=== PATIENT | female | born 1965 | race African-American/Black ===

== ENCOUNTER 2017-12-28 16:59 | Inpatient (IN) | payer MEDICAID, OTHER ==
[~2017-12-28] VITALS: Ht 162.6 cm; Wt 44.9 kg
[2017-12-28] MEDS ORDERED: HYDR-3112 PO (17:32)
[2017-12-28 17:54] LABS: BASOPHILS % (AUTO) 0.5 % (0.0-2.0); HEMATOCRIT 42.6 % (36-46); HEMOGLOBIN 14.3 g/dL (12.0-16.0); LYMPHOCYTES # (AUTO) 1.6 K/uL (1.0-4.8); LYMPHOCYTES % (AUTO) 25.8 % (22.0-44.0); MEAN CORPUSCULAR HEMOGLOBIN 31.6 pg (26.0-34.0); MEAN CORPUSCULAR HGB CONC 33.5 G/dL (31.0-37.0); MEAN CORPUSCULAR VOLUME 94 fL (80-100); MONOCYTES # (AUTO) 0.4 K/uL (0.1-1.0); MONOCYTES % (AUTO) 5.6 % (2.0-9.0); NEUTROPHILS # (AUTO) 4.2 K/uL (1.8-7.7); NEUTROPHILS % (AUTO) 67.1 % (40.0-70.0); PLATELET COUNT (AUTO) 141 K/uL (150-450); RED BLOOD CELL COUNT(AUTO) 4.52 MIL/uL (4.00-5.20); RED CELL DISTRIBUTION WIDTH 11.8 % (11.5-14.5)
[2017-12-28 18:01] LABS: ANION GAP 8 mmol/L (8-16); CALCIUM, TOTAL 9.4 mg/dL (8.8-10.5); CARBON DIOXIDE 30 mmol/L (22-29); CHLORIDE 103 mmol/L (98-107); CREATININE 0.94 mg/dL (0.60-1.30); GLOMERULAR FILTR. RATE CALC > 60 mL/min (>60); GLUCOSE,RANDOM 93 mg/dL (70-110); SODIUM SERUM 141 mmol/L (136-145); UREA NITROGEN, BLOOD 19 mg/dL (7-18)
[2017-12-28 18:03] LABS: ALBUMIN 3.7 g/dL (3.4-5.0)
[2017-12-28 18:10] LABS: AMPHET/METH SCREEN,URINE NEGATIVE (NEGATIVE); BARBITURATE SCREEN, URINE NEGATIVE (NEGATIVE); BENZODIAZEPINES SCREEN,URINE NEGATIVE (NEGATIVE); CANNABINOID SCREEN,URINE NEGATIVE (NEGATIVE); COCAINE SCREEN,URINE NEGATIVE (NEGATIVE); METHADONE SCREEN, URINE NEGATIVE (NEGATIVE); OPIATE SCREEN,URINE NEGATIVE (NEGATIVE)
[2017-12-28 18:12] LABS: PHENCYCLIDINE SCREEN,URINE NEGATIVE (NEGATIVE)
[2017-12-28 18:22] LABS: ALANINE AMINOTRANSFERASE 55 U/L (12-78); ALKALINE PHOSPHATASE 109 U/L (46-116); ASPARTATE AMINOTRANSFERASE 37 U/L (15-37); BILIRUBIN,TOTAL 0.4 mg/dL (0.1-1.0); TOTAL PROTEIN, SERUM 7.1 g/dL (6.4-8.2)
[2017-12-28] MEDS ORDERED: ZOLPIDEM TARTRATE 10 MG TABLET PO PRN (21:15)
[2017-12-28] MEDS ORDERED: HALOPERIDOL 5 MG TABLET PO PRN (21:15)
[2017-12-28] MEDS ORDERED: LORazepam 2 MG TABLET PO PRN (21:15)
[2017-12-28] MEDS ORDERED: APIX5TAB PO (22:39)
[2017-12-28] MEDS ORDERED: MULT1TAB70 PO (22:39)
[2017-12-28] MEDS ORDERED: CARV3 PO (22:39)
[2017-12-28] MEDS ORDERED: SPIR25 PO (22:39)
[2017-12-28] MEDS ORDERED: SENN-34 PO (22:39)
[2017-12-28] MEDS ORDERED: VITAD1000 PO (22:39)
[2017-12-28] MEDS ORDERED: ATOR40TA28 PO (22:39)
[2017-12-28] MEDS ORDERED: ASPI81TA39 PO (22:39)
[2017-12-29 00:20] VITALS: BP 108/69
[2017-12-29] MEDS ORDERED: PNEUMOCOCCAL VACCINE POLYVALENT 0.5 ML VIAL [PPSV23] IM ONE (05:30)
[2017-12-29] MEDS ORDERED: ACETAMINOPHEN 325 MG TABLET PO PRN (06:30)
[2017-12-29] MEDS ORDERED: LOPERAMIDE HCL 2 MG CAPSULE PO PRN (06:30)
[2017-12-29] MEDS ORDERED: BACITRACIN 28.4 GM OINTMENT TP PRN (06:30)
[2017-12-29] MEDS ORDERED: BENZOCAINE/MENTHOL LOZENGE MM PRN (06:30)
[2017-12-29] MEDS ORDERED: PETROLATUM,WHITE 71 GM JELLY TP PRN (06:30)
[2017-12-29] MEDS ORDERED: MAGNESIUM HYDROXIDE SUSPENSION 30 ML UDCUP PO PRN (06:30)
[2017-12-29] MEDS ORDERED: ALBUTEROL SULFATE HFA 90 MCG/PUFF 8 GM INHALER IH PRN (06:30)
[2017-12-29] MEDS ORDERED: ONDANSETRON HCL 4 MG TABLET PO PRN (06:30)
[2017-12-29] MEDS ORDERED: CloNIDine HCL 0.1 MG TABLET PO PRN (06:30)
[2017-12-29] MEDS ORDERED: MAG HYDROX/AL HYDROX/SIMETH ES 30 ML SUSPENSION UDCUP PO PRN (06:30)
[2017-12-29] MEDS ORDERED: IBUPROFEN 600 MG TABLET PO PRN (06:30)
[2017-12-29] MEDS: ASPIRIN 81 MG CHEWABLE TABLET PO SCH (08:34)
[2017-12-29] MEDS: CARVEDILOL 3.125 MG TABLET PO SCH ×2 (08:34→17:00)
[2017-12-29] MEDS: DOCUSATE SODIUM 100 MG CAPSULE PO SCH (08:35)
[2017-12-29] MEDS: CHOLECALCIFEROL (VIT D3) 1,000 UNITS TABLET PO SCH (08:35)
[2017-12-29] MEDS: MULTIVITAMINS, THERAPEUTIC TABLET PO SCH (08:35)
[2017-12-29] MEDS: OMEPRAZOLE 20 MG CAPSULE PO SCH (08:35)
[2017-12-29 08:36] VITALS: BP 125/67
[2017-12-29] MEDS: HydrOXYzine HCL 25 MG TABLET PO SCH ×4 (09:00→21:00)
[2017-12-29] MEDS: APIXABAN 5 MG TABLET PO SCH ×2 (12:40→17:00)
[2017-12-29] MEDS: SPIRONOLACTONE 25 MG TABLET PO SCH (12:40)
[2017-12-29] MEDS: SENNA 187 MG TABLET PO SCH ×2 (12:40→16:03)
[2017-12-29 16:02] VITALS: BP 108/67
[2017-12-29] MEDS: DIVALPROEX SODIUM 500 MG DR TABLET PO SCH (20:45)
[2017-12-29] MEDS: ATORVASTATIN CALCIUM 40 MG TABLET PO SCH (21:00)
[2017-12-30 00:33] VITALS: BP 102/62
[2017-12-30 08:00] VITALS: BP 102/63
[2017-12-30] MEDS: SENNA 187 MG TABLET PO SCH ×2 (08:22→16:44)
[2017-12-30] MEDS: SPIRONOLACTONE 25 MG TABLET PO SCH (08:22)
[2017-12-30] MEDS: MULTIVITAMINS, THERAPEUTIC TABLET PO SCH (08:22)
[2017-12-30] MEDS: DOCUSATE SODIUM 100 MG CAPSULE PO SCH (08:22)
[2017-12-30] MEDS: CITALOPRAM HYDROBROMIDE 20 MG TABLET PO SCH (08:22)
[2017-12-30] MEDS: APIXABAN 5 MG TABLET PO SCH ×2 (08:22→17:00)
[2017-12-30] MEDS: ASPIRIN 81 MG CHEWABLE TABLET PO SCH (08:22)
[2017-12-30] MEDS: DIVALPROEX SODIUM 500 MG DR TABLET PO SCH ×2 (08:22→17:00)
[2017-12-30] MEDS: CHOLECALCIFEROL (VIT D3) 1,000 UNITS TABLET PO SCH (08:23)
[2017-12-30] MEDS: CARVEDILOL 3.125 MG TABLET PO SCH ×2 (08:23→17:00)
[2017-12-30] MEDS: OMEPRAZOLE 20 MG CAPSULE PO SCH (08:23)
[2017-12-30] MEDS: HydrOXYzine HCL 25 MG TABLET PO SCH ×4 (08:26→20:05)
[2017-12-30 16:00] VITALS: BP 101/69
[2017-12-30] MEDS: ATORVASTATIN CALCIUM 40 MG TABLET PO SCH (20:05)
[2017-12-31 00:30] VITALS: BP 110/68
[2017-12-31 08:20] VITALS: BP 121/78
[2017-12-31] MEDS: SPIRONOLACTONE 25 MG TABLET PO SCH (08:20)
[2017-12-31] MEDS: CHOLECALCIFEROL (VIT D3) 1,000 UNITS TABLET PO SCH (08:20)
[2017-12-31] MEDS: OMEPRAZOLE 20 MG CAPSULE PO SCH (08:20)
[2017-12-31] MEDS: ASPIRIN 81 MG CHEWABLE TABLET PO SCH (08:20)
[2017-12-31] MEDS: MULTIVITAMINS, THERAPEUTIC TABLET PO SCH (08:20)
[2017-12-31] MEDS: DIVALPROEX SODIUM 500 MG DR TABLET PO SCH ×2 (08:20→17:30)
[2017-12-31] MEDS: HydrOXYzine HCL 25 MG TABLET PO SCH ×4 (08:20→20:20)
[2017-12-31] MEDS: CARVEDILOL 3.125 MG TABLET PO SCH ×2 (08:20→17:30)
[2017-12-31] MEDS: DOCUSATE SODIUM 100 MG CAPSULE PO SCH (08:20)
[2017-12-31] MEDS: SENNA 187 MG TABLET PO SCH ×2 (08:20→16:55)
[2017-12-31] MEDS: CITALOPRAM HYDROBROMIDE 20 MG TABLET PO SCH (08:20)
[2017-12-31] MEDS: APIXABAN 5 MG TABLET PO SCH ×2 (08:21→17:30)
[2017-12-31 16:08] VITALS: BP 101/63
[2017-12-31] MEDS: ATORVASTATIN CALCIUM 40 MG TABLET PO SCH (20:20)
[2018-01-01 05:15] VITALS: BP 110/68
[2018-01-01 08:14] VITALS: BP 101/64
[2018-01-01] MEDS: DIVALPROEX SODIUM 500 MG DR TABLET PO SCH ×2 (08:39→17:22)
[2018-01-01] MEDS: CITALOPRAM HYDROBROMIDE 20 MG TABLET PO SCH (08:39)
[2018-01-01] MEDS: DOCUSATE SODIUM 100 MG CAPSULE PO SCH (08:39)
[2018-01-01] MEDS: CHOLECALCIFEROL (VIT D3) 1,000 UNITS TABLET PO SCH (08:39)
[2018-01-01] MEDS: MULTIVITAMINS, THERAPEUTIC TABLET PO SCH (08:39)
[2018-01-01] MEDS: ASPIRIN 81 MG CHEWABLE TABLET PO SCH (08:39)
[2018-01-01] MEDS: OMEPRAZOLE 20 MG CAPSULE PO SCH (08:39)
[2018-01-01] MEDS: SPIRONOLACTONE 25 MG TABLET PO SCH (08:40)
[2018-01-01] MEDS: APIXABAN 5 MG TABLET PO SCH ×2 (08:40→17:22)
[2018-01-01] MEDS: SENNA 187 MG TABLET PO SCH ×2 (08:40→16:42)
[2018-01-01] MEDS: HydrOXYzine HCL 25 MG TABLET PO SCH ×4 (08:40→20:16)
[2018-01-01] MEDS: CARVEDILOL 3.125 MG TABLET PO SCH ×2 (09:10→17:22)
[2018-01-01 16:27] VITALS: BP 102/66
[2018-01-01] MEDS: ATORVASTATIN CALCIUM 40 MG TABLET PO SCH (20:16)
[2018-01-02 01:34] VITALS: BP 102/62
[2018-01-02 08:27] VITALS: BP 103/65
[2018-01-02 08:57] VITALS: BP 117/74
[2018-01-02] MEDS: ASPIRIN 81 MG CHEWABLE TABLET PO SCH (08:58)
[2018-01-02] MEDS: DOCUSATE SODIUM 100 MG CAPSULE PO SCH (08:59)
[2018-01-02] MEDS: CARVEDILOL 3.125 MG TABLET PO SCH ×2 (08:59→17:34)
[2018-01-02] MEDS: OMEPRAZOLE 20 MG CAPSULE PO SCH (08:59)
[2018-01-02] MEDS: DIVALPROEX SODIUM 500 MG DR TABLET PO SCH ×2 (08:59→17:34)
[2018-01-02] MEDS: SPIRONOLACTONE 25 MG TABLET PO SCH (08:59)
[2018-01-02] MEDS: CHOLECALCIFEROL (VIT D3) 1,000 UNITS TABLET PO SCH (08:59)
[2018-01-02] MEDS: SENNA 187 MG TABLET PO SCH ×2 (08:59→16:43)
[2018-01-02] MEDS: MULTIVITAMINS, THERAPEUTIC TABLET PO SCH (08:59)
[2018-01-02] MEDS: CITALOPRAM HYDROBROMIDE 20 MG TABLET PO SCH (08:59)
[2018-01-02] MEDS: HydrOXYzine HCL 25 MG TABLET PO SCH ×4 (08:59→20:32)
[2018-01-02] MEDS: APIXABAN 5 MG TABLET PO SCH ×2 (09:00→17:34)
[2018-01-02 16:11] VITALS: BP 117/62
[2018-01-02] MEDS: ATORVASTATIN CALCIUM 40 MG TABLET PO SCH (20:32)
[2018-01-03 05:28] VITALS: BP 120/81
[2018-01-03 08:02] VITALS: BP 103/60
[2018-01-03] MEDS: OMEPRAZOLE 20 MG CAPSULE PO SCH (08:59)
[2018-01-03] MEDS: CARVEDILOL 3.125 MG TABLET PO SCH ×2 (08:59→17:38)
[2018-01-03] MEDS: DIVALPROEX SODIUM 500 MG DR TABLET PO SCH ×2 (09:00→17:39)
[2018-01-03] MEDS: MULTIVITAMINS, THERAPEUTIC TABLET PO SCH (09:00)
[2018-01-03] MEDS: ASPIRIN 81 MG CHEWABLE TABLET PO SCH (09:00)
[2018-01-03] MEDS: SENNA 187 MG TABLET PO SCH ×2 (09:00→16:31)
[2018-01-03] MEDS: CHOLECALCIFEROL (VIT D3) 1,000 UNITS TABLET PO SCH (09:00)
[2018-01-03] MEDS: HydrOXYzine HCL 25 MG TABLET PO SCH ×4 (09:00→20:19)
[2018-01-03] MEDS: SPIRONOLACTONE 25 MG TABLET PO SCH (09:00)
[2018-01-03] MEDS: APIXABAN 5 MG TABLET PO SCH ×2 (09:00→17:38)
[2018-01-03] MEDS: CITALOPRAM HYDROBROMIDE 20 MG TABLET PO SCH (09:00)
[2018-01-03] MEDS: DOCUSATE SODIUM 100 MG CAPSULE PO SCH (09:00)
[2018-01-03 16:51] VITALS: BP 115/68
[2018-01-03] MEDS: RisperiDONE 0.5 MG TABLET PO SCH (17:39)
[2018-01-03] MEDS: ATORVASTATIN CALCIUM 40 MG TABLET PO SCH (20:19)
[2018-01-04] MEDS ORDERED: RISP.5 PO (02:44)
[2018-01-04] MEDS ORDERED: CITA-106 PO (02:44)
[2018-01-04] MEDS ORDERED: DIVA-78 PO (02:44)
[2018-01-04 05:19] VITALS: BP 120/82
[2018-01-04] MEDS ORDERED: ATOR40TA28 PO (07:53)
[2018-01-04] MEDS ORDERED: ASPI81TA87 PO (07:54)
[2018-01-04] MEDS ORDERED: VITAD1000 PO (07:54)
[2018-01-04] MEDS ORDERED: SENN8.6T90 PO (07:55)
[2018-01-04] MEDS ORDERED: APIX5TAB PO (07:55)
[2018-01-04] MEDS ORDERED: CARV3.1262 PO (07:56)
[2018-01-04] MEDS ORDERED: SPIR25 PO (07:56)
[2018-01-04 08:21] VITALS: BP 110/72
[2018-01-04] MEDS: DIVALPROEX SODIUM 500 MG DR TABLET PO SCH (08:34)
[2018-01-04] MEDS: MULTIVITAMINS, THERAPEUTIC TABLET PO SCH (08:34)
[2018-01-04] MEDS: ASPIRIN 81 MG CHEWABLE TABLET PO SCH (08:34)
[2018-01-04] MEDS: CITALOPRAM HYDROBROMIDE 20 MG TABLET PO SCH (08:35)
[2018-01-04] MEDS: CHOLECALCIFEROL (VIT D3) 1,000 UNITS TABLET PO SCH (08:35)
[2018-01-04] MEDS: OMEPRAZOLE 20 MG CAPSULE PO SCH (08:35)
[2018-01-04] MEDS: DOCUSATE SODIUM 100 MG CAPSULE PO SCH (08:35)
[2018-01-04] MEDS: CARVEDILOL 3.125 MG TABLET PO SCH (08:35)
[2018-01-04] MEDS: RisperiDONE 0.5 MG TABLET PO SCH (08:35)
[2018-01-04] MEDS: SPIRONOLACTONE 25 MG TABLET PO SCH (08:36)
[2018-01-04] MEDS: SENNA 187 MG TABLET PO SCH (08:36)
[2018-01-04] MEDS: HydrOXYzine HCL 25 MG TABLET PO SCH ×2 (08:36→12:37)
[2018-01-04] MEDS: APIXABAN 5 MG TABLET PO SCH (08:36)
== END 2018-01-04 14:01 | disposition home or self-care (01) | DRG 754 ==
LOC: EMS 17:00 → B2S 21:30
PROVIDERS: ADMIT Psychiatry & Neurology Psychiatry; ATTEND Psychiatry & Neurology Psychiatry
DX: F32.9 Major depressive disorder, single episode, unspecified (principal); F22 Delusional disorders; R45.851 Suicidal ideations; I10 Essential (primary) hypertension; E55.9 Vitamin D deficiency, unspecified; E78.00 Pure hypercholesterolemia, unspecified; F41.9 Anxiety disorder, unspecified; G47.00 Insomnia, unspecified; J44.9 Chronic obstructive pulmonary disease, unspecified; Z90.710 Acquired absence of both cervix and uterus; Z95.0 Presence of cardiac pacemaker; Z79.899 Other long term (current) drug therapy; Z88.2 Allergy status to sulfonamides; Z79.82 Long term (current) use of aspirin; Z28.21 Immunization not carried out because of patient refusal
CPT/HCPCS: 99285; G0480

== ENCOUNTER 2021-02-18 11:02 | Inpatient (IN) | payer MEDICAID, OTHER ==
[~2021-02-18] VITALS: Ht 162.6 cm; Wt 49.1 kg
[~2021-02-18 11:02] MED LIST: APIX5TAB PO; ASPI81TA87 PO; ATOR40TA28 PO; CARV3.1262 PO; CHOL100018 PO; CITA-144 PO; DIVA-112 PO; RISP0.5T39 PO; SENN8.6T90 PO; SPIR-37 PO
[2021-02-18 12:00] LABS: BASOPHILS % (AUTO) 0.4 % (0.0-2.0); EOSINOPHILS % (AUTO) 0.2 % (1.0-6.0); HEMATOCRIT 43.8 % (36-46); MEAN CORPUSCULAR HEMOGLOBIN 30.5 pg (26.0-34.0); MEAN CORPUSCULAR VOLUME 95 fL (80-100); MONOCYTES % (AUTO) 5.1 % (2.0-9.0); NEUTROPHILS % (AUTO) 80.3 % (40.0-70.0); PLATELET COUNT (AUTO) 142 K/uL (150-450); RED BLOOD CELL COUNT(AUTO) 4.59 MIL/uL (4.00-5.20); RED CELL DISTRIBUTION WIDTH 12.7 % (11.5-14.5)
[2021-02-18 12:01] LABS: LYMPHOCYTES # (AUTO) 0.9 K/uL (1.0-4.8); MONOCYTES # (AUTO) 0.3 K/uL (0.1-1.0)
[2021-02-18 12:09] LABS: ANION GAP 2 mmol/L (8-16); CALCIUM, TOTAL 9.2 mg/dL (8.8-10.5); CARBON DIOXIDE 32 mmol/L (22-29); CHLORIDE 107 mmol/L (98-107); CREATININE 1.12 mg/dL (0.60-1.30); GLOMERULAR FILTR. RATE CALC > 60 mL/min (>60); GLUCOSE,RANDOM 106 mg/dL (70-110); POTASSIUM 3.8 mmol/L (3.5-5.1); SODIUM SERUM 141 mmol/L (136-145); UREA NITROGEN, BLOOD 9 mg/dL (7-18)
[2021-02-18 12:16] LABS: ALANINE AMINOTRANSFERASE 33 U/L (12-78); ALBUMIN 3.9 g/dL (3.4-5.0); ALKALINE PHOSPHATASE 116 U/L (46-116); ASPARTATE AMINOTRANSFERASE 30 U/L (15-37); BILIRUBIN,TOTAL 0.5 mg/dL (0.1-1.0); TOTAL PROTEIN, SERUM 7.9 g/dL (6.4-8.2)
[2021-02-18] MEDS ORDERED: LORazepam 2 MG TABLET PO PRN (14:00)
[2021-02-18] MEDS ORDERED: HALOPERIDOL 5 MG TABLET PO PRN (14:00)
[2021-02-18] MEDS ORDERED: ZOLPIDEM TARTRATE 10 MG TABLET PO PRN (14:00)
[2021-02-18 14:23] LABS: COVID AG,FIA SOURCE NASOPHARYNGEAL
[2021-02-18] MEDS ORDERED: HALOPERIDOL LACTATE 5 MG/ML VIAL ONE (16:22)
[2021-02-18] MEDS ORDERED: LORazepam 2 MG/ML VIAL IM ONE (16:30)
[2021-02-18] MEDS ORDERED: DiphenhydrAMINE HCL 50 MG/ML VIAL IM ONE (16:30)
[2021-02-18] MEDS ORDERED: HALOPERIDOL LACTATE 5 MG/ML VIAL IM ONE (16:30)
[2021-02-18 17:11] VITALS: BP 105/67
[2021-02-18] MEDS ORDERED: PNEUMOCOCCAL VACCINE POLYVALENT 0.5 ML VIAL [PPSV23] IM. ONE (17:15)
[2021-02-18] MEDS: ATORVASTATIN CALCIUM 40 MG TABLET PO SCH (21:00)
[2021-02-19 04:07] VITALS: BP 102/71
[2021-02-19] MEDS: SPIRONOLACTONE 25 MG TABLET PO SCH (08:19)
[2021-02-19] MEDS: CARVEDILOL 3.125 MG TABLET PO SCH ×2 (08:19→16:55)
[2021-02-19] MEDS: APIXABAN 5 MG TABLET PO SCH ×2 (08:19→16:56)
[2021-02-19] MEDS: ASPIRIN 81 MG CHEWABLE TABLET PO SCH (08:19)
[2021-02-19] MEDS: CHOLECALCIFEROL (VIT D3) 1,000 UNITS [25 MCG] TABLET PO SCH (08:20)
[2021-02-19] MEDS: CITALOPRAM HYDROBROMIDE 20 MG TABLET PO SCH (11:00)
[2021-02-19] MEDS: RisperiDONE 0.5 MG TABLET PO SCH ×2 (11:00→20:19)
[2021-02-19] MEDS: DIVALPROEX SODIUM 500 MG DR TABLET PO SCH ×2 (11:00→20:19)
[2021-02-19] MEDS ORDERED: MAG HYDROX/AL HYDROX/SIMETH ES 30 ML SUSPENSION UDCUP PO PRN (11:30)
[2021-02-19] MEDS ORDERED: GuaiFENesin/D-METHORPHAN [SUGAR-FREE] 200-20MG/10 ML SYRUP UDCUP PO PRN (11:30)
[2021-02-19] MEDS ORDERED: ONDANSETRON HCL 4 MG TABLET PO PRN (11:30)
[2021-02-19] MEDS ORDERED: LOPERAMIDE HCL 2 MG CAPSULE PO PRN (11:30)
[2021-02-19] MEDS ORDERED: MAGNESIUM HYDROXIDE SUSPENSION 30 ML UDCUP PO PRN (11:30)
[2021-02-19] MEDS ORDERED: DOCUSATE SODIUM 100 MG CAPSULE PO PRN (11:30)
[2021-02-19] MEDS ORDERED: PETROLATUM,WHITE 28 GM JELLY TP PRN (11:30)
[2021-02-19] MEDS ORDERED: NICOTINE 14 MG/24 HOUR PATCH TD PRN (11:30)
[2021-02-19] MEDS ORDERED: CloNIDine HCL 0.1 MG TABLET PO PRN (11:30)
[2021-02-19] MEDS ORDERED: ALBUTEROL SULFATE HFA 90 MCG/PUFF 8 GM INHALER IH PRN (11:30)
[2021-02-19] MEDS ORDERED: IBUPROFEN 400 MG TABLET PO PRN (11:30)
[2021-02-19] MEDS ORDERED: ACETAMINOPHEN 325 MG TABLET PO PRN (11:30)
[2021-02-19 16:12] VITALS: BP 98/67
[2021-02-19 16:29] VITALS: BP 108/72
[2021-02-19] MEDS: ATORVASTATIN CALCIUM 40 MG TABLET PO SCH (20:19)
[2021-02-20 00:11] VITALS: BP 102/66
[2021-02-20 01:20] LABS: CHOLESTEROL 146 mg/dL (131-200); HDL CHOLESTEROL 49 mg/dL (40-60); LDL CHOL (CALC.) 86 mg/dL (0-130); TRIGLYCERIDES 57 mg/dL (15-150)
[2021-02-20 08:46] VITALS: BP 110/68
[2021-02-20] MEDS: ASPIRIN 81 MG CHEWABLE TABLET PO SCH (09:39)
[2021-02-20] MEDS: SPIRONOLACTONE 25 MG TABLET PO SCH (09:39)
[2021-02-20] MEDS: CARVEDILOL 3.125 MG TABLET PO SCH ×2 (09:40→16:57)
[2021-02-20] MEDS: CITALOPRAM HYDROBROMIDE 20 MG TABLET PO SCH (09:40)
[2021-02-20] MEDS: DIVALPROEX SODIUM 500 MG DR TABLET PO SCH ×2 (09:41→20:32)
[2021-02-20] MEDS: APIXABAN 5 MG TABLET PO SCH ×2 (09:41→16:57)
[2021-02-20] MEDS: CHOLECALCIFEROL (VIT D3) 1,000 UNITS [25 MCG] TABLET PO SCH (09:42)
[2021-02-20] MEDS: RisperiDONE 0.5 MG TABLET PO SCH ×2 (09:47→20:33)
[2021-02-20 16:23] VITALS: BP 99/68
[2021-02-20] MEDS: ATORVASTATIN CALCIUM 40 MG TABLET PO SCH (20:33)
[2021-02-21 02:35] VITALS: BP 103/62
[2021-02-21 08:34] VITALS: BP 100/69
[2021-02-21] MEDS: ASPIRIN 81 MG CHEWABLE TABLET PO SCH (09:03)
[2021-02-21] MEDS: RisperiDONE 0.5 MG TABLET PO SCH ×2 (09:03→20:06)
[2021-02-21] MEDS: CITALOPRAM HYDROBROMIDE 20 MG TABLET PO SCH (09:03)
[2021-02-21] MEDS: CARVEDILOL 3.125 MG TABLET PO SCH ×2 (09:03→16:36)
[2021-02-21] MEDS: DIVALPROEX SODIUM 500 MG DR TABLET PO SCH ×2 (09:03→20:07)
[2021-02-21] MEDS: APIXABAN 5 MG TABLET PO SCH ×2 (09:03→16:36)
[2021-02-21] MEDS: SPIRONOLACTONE 25 MG TABLET PO SCH (09:03)
[2021-02-21] MEDS: CHOLECALCIFEROL (VIT D3) 1,000 UNITS [25 MCG] TABLET PO SCH (09:04)
[2021-02-21 16:20] VITALS: BP 100/61
[2021-02-21] MEDS: ATORVASTATIN CALCIUM 40 MG TABLET PO SCH (20:07)
[2021-02-22 01:19] VITALS: BP 108/74
[2021-02-22 08:48] VITALS: BP 100/59
[2021-02-22] MEDS: CARVEDILOL 3.125 MG TABLET PO SCH ×2 (09:00→17:00)
[2021-02-22] MEDS: SPIRONOLACTONE 25 MG TABLET PO SCH (09:00)
[2021-02-22] MEDS: CHOLECALCIFEROL (VIT D3) 1,000 UNITS [25 MCG] TABLET PO SCH (09:14)
[2021-02-22] MEDS: CITALOPRAM HYDROBROMIDE 20 MG TABLET PO SCH (09:14)
[2021-02-22] MEDS: RisperiDONE 0.5 MG TABLET PO SCH ×2 (09:14→20:01)
[2021-02-22] MEDS: APIXABAN 5 MG TABLET PO SCH ×2 (09:14→16:16)
[2021-02-22] MEDS: ASPIRIN 81 MG CHEWABLE TABLET PO SCH (09:14)
[2021-02-22] MEDS: DIVALPROEX SODIUM 500 MG DR TABLET PO SCH ×2 (09:14→20:01)
[2021-02-22 16:05] VITALS: BP 107/53
[2021-02-22] MEDS: ATORVASTATIN CALCIUM 40 MG TABLET PO SCH (20:01)
[2021-02-23 00:20] VITALS: BP 101/64
[2021-02-23 08:40] VITALS: BP 100/59
[2021-02-23] MEDS: CARVEDILOL 3.125 MG TABLET PO SCH ×2 (09:00→17:00)
[2021-02-23] MEDS: CHOLECALCIFEROL (VIT D3) 1,000 UNITS [25 MCG] TABLET PO SCH (09:28)
[2021-02-23] MEDS: RisperiDONE 0.5 MG TABLET PO SCH ×2 (09:28→20:14)
[2021-02-23] MEDS: APIXABAN 5 MG TABLET PO SCH ×2 (09:29→17:12)
[2021-02-23] MEDS: SPIRONOLACTONE 25 MG TABLET PO SCH (09:29)
[2021-02-23] MEDS: DIVALPROEX SODIUM 500 MG DR TABLET PO SCH ×2 (09:29→20:14)
[2021-02-23] MEDS: CITALOPRAM HYDROBROMIDE 20 MG TABLET PO SCH (09:29)
[2021-02-23 16:10] VITALS: BP 116/63
[2021-02-23] MEDS: ATORVASTATIN CALCIUM 40 MG TABLET PO SCH (20:14)
[2021-02-24 00:15] VITALS: BP 110/71
[2021-02-24 08:34] VITALS: BP 100/59
[2021-02-24] MEDS: CARVEDILOL 3.125 MG TABLET PO SCH ×2 (09:00→16:15)
[2021-02-24] MEDS: SPIRONOLACTONE 25 MG TABLET PO SCH (09:00)
[2021-02-24] MEDS: CITALOPRAM HYDROBROMIDE 20 MG TABLET PO SCH (09:09)
[2021-02-24] MEDS: RisperiDONE 0.5 MG TABLET PO SCH ×2 (09:09→20:17)
[2021-02-24] MEDS: DIVALPROEX SODIUM 500 MG DR TABLET PO SCH ×2 (09:09→20:17)
[2021-02-24] MEDS: CHOLECALCIFEROL (VIT D3) 1,000 UNITS [25 MCG] TABLET PO SCH (09:09)
[2021-02-24] MEDS: APIXABAN 5 MG TABLET PO SCH ×2 (09:19→16:14)
[2021-02-24 10:30] VITALS: BP 108/70
[2021-02-24 16:19] VITALS: BP 103/59
[2021-02-24] MEDS: ATORVASTATIN CALCIUM 40 MG TABLET PO SCH (20:17)
[2021-02-25 00:45] VITALS: BP 111/63
[2021-02-25 08:15] VITALS: BP 90/61
[2021-02-25] MEDS: SPIRONOLACTONE 25 MG TABLET PO SCH (08:26)
[2021-02-25] MEDS: RisperiDONE 0.5 MG TABLET PO SCH ×2 (08:26→20:23)
[2021-02-25] MEDS: CHOLECALCIFEROL (VIT D3) 1,000 UNITS [25 MCG] TABLET PO SCH (08:26)
[2021-02-25] MEDS: THIAMINE 100 MG TABLET PO SCH (08:26)
[2021-02-25] MEDS: FOLIC ACID 1 MG TABLET PO SCH (08:26)
[2021-02-25] MEDS: MULTIVITAMINS WITH MINERALS, THERAPEUTIC TABLET PO SCH (08:26)
[2021-02-25] MEDS: DIVALPROEX SODIUM 500 MG DR TABLET PO SCH ×2 (08:26→20:23)
[2021-02-25] MEDS: APIXABAN 5 MG TABLET PO SCH ×2 (08:26→17:04)
[2021-02-25] MEDS: CARVEDILOL 3.125 MG TABLET PO SCH ×2 (08:26→17:04)
[2021-02-25] MEDS: CITALOPRAM HYDROBROMIDE 20 MG TABLET PO SCH (08:27)
[2021-02-25 08:28] LABS: MAGNESIUM 1.9 mg/dL (1.80-2.40); PHOSPHORUS 4.1 mg/dL (2.5-4.9)
[2021-02-25 16:11] VITALS: BP 96/68
[2021-02-25] MEDS: ATORVASTATIN CALCIUM 40 MG TABLET PO SCH (20:23)
[2021-02-26 00:37] VITALS: BP 100/72
[2021-02-26 08:26] VITALS: BP 101/63
[2021-02-26] MEDS: CHOLECALCIFEROL (VIT D3) 1,000 UNITS [25 MCG] TABLET PO SCH (08:49)
[2021-02-26] MEDS: MULTIVITAMINS WITH MINERALS, THERAPEUTIC TABLET PO SCH (08:49)
[2021-02-26] MEDS: FOLIC ACID 1 MG TABLET PO SCH (08:49)
[2021-02-26] MEDS: APIXABAN 5 MG TABLET PO SCH ×2 (08:49→16:50)
[2021-02-26] MEDS: THIAMINE 100 MG TABLET PO SCH (08:49)
[2021-02-26] MEDS: CITALOPRAM HYDROBROMIDE 20 MG TABLET PO SCH (08:49)
[2021-02-26] MEDS: RisperiDONE 0.5 MG TABLET PO SCH ×2 (08:49→20:37)
[2021-02-26] MEDS: DIVALPROEX SODIUM 500 MG DR TABLET PO SCH ×2 (08:49→20:36)
[2021-02-26] MEDS: SPIRONOLACTONE 25 MG TABLET PO SCH ×2 (09:00→13:36)
[2021-02-26] MEDS: CARVEDILOL 3.125 MG TABLET PO SCH ×2 (09:00→16:50)
[2021-02-26 16:22] VITALS: BP 104/60
[2021-02-26] MEDS: ATORVASTATIN CALCIUM 40 MG TABLET PO SCH (20:36)
[2021-02-27 04:20] VITALS: BP 106/66
[2021-02-27 08:08] VITALS: BP 106/73
[2021-02-27] MEDS: CARVEDILOL 3.125 MG TABLET PO SCH ×2 (09:00→17:00)
[2021-02-27] MEDS: DIVALPROEX SODIUM 500 MG DR TABLET PO SCH ×2 (09:26→20:21)
[2021-02-27] MEDS: APIXABAN 5 MG TABLET PO SCH ×2 (09:26→17:03)
[2021-02-27] MEDS: THIAMINE 100 MG TABLET PO SCH (09:26)
[2021-02-27] MEDS: CHOLECALCIFEROL (VIT D3) 1,000 UNITS [25 MCG] TABLET PO SCH (09:26)
[2021-02-27] MEDS: RisperiDONE 0.5 MG TABLET PO SCH ×2 (09:26→20:20)
[2021-02-27] MEDS: MULTIVITAMINS WITH MINERALS, THERAPEUTIC TABLET PO SCH (09:26)
[2021-02-27] MEDS: CITALOPRAM HYDROBROMIDE 20 MG TABLET PO SCH (09:26)
[2021-02-27] MEDS: SPIRONOLACTONE 25 MG TABLET PO SCH (09:26)
[2021-02-27] MEDS: FOLIC ACID 1 MG TABLET PO SCH (09:26)
[2021-02-27 16:11] VITALS: BP 98/64
[2021-02-27] MEDS: ATORVASTATIN CALCIUM 40 MG TABLET PO SCH (20:20)
[2021-02-28 05:33] VITALS: BP 108/64
[2021-02-28] MEDS: CARVEDILOL 3.125 MG TABLET PO SCH ×2 (09:00→16:49)
[2021-02-28 09:08] VITALS: BP 101/62
[2021-02-28] MEDS: RisperiDONE 0.5 MG TABLET PO SCH ×2 (09:21→20:06)
[2021-02-28] MEDS: THIAMINE 100 MG TABLET PO SCH (09:21)
[2021-02-28] MEDS: CHOLECALCIFEROL (VIT D3) 1,000 UNITS [25 MCG] TABLET PO SCH (09:21)
[2021-02-28] MEDS: MULTIVITAMINS WITH MINERALS, THERAPEUTIC TABLET PO SCH (09:21)
[2021-02-28] MEDS: CITALOPRAM HYDROBROMIDE 20 MG TABLET PO SCH (09:22)
[2021-02-28] MEDS: APIXABAN 5 MG TABLET PO SCH ×2 (09:22→16:49)
[2021-02-28] MEDS: DIVALPROEX SODIUM 500 MG DR TABLET PO SCH ×2 (09:22→20:06)
[2021-02-28] MEDS: FOLIC ACID 1 MG TABLET PO SCH (09:22)
[2021-02-28] MEDS: SPIRONOLACTONE 25 MG TABLET PO SCH (09:29)
[2021-02-28 16:14] VITALS: BP 94/56
[2021-02-28] MEDS: ATORVASTATIN CALCIUM 40 MG TABLET PO SCH (20:06)
[2021-03-01 05:17] VITALS: BP 108/62
[2021-03-01] MEDS: THIAMINE 100 MG TABLET PO SCH (08:05)
[2021-03-01] MEDS: CITALOPRAM HYDROBROMIDE 20 MG TABLET PO SCH (08:12)
[2021-03-01] MEDS: RisperiDONE 0.5 MG TABLET PO SCH ×2 (08:12→20:29)
[2021-03-01] MEDS: DIVALPROEX SODIUM 500 MG DR TABLET PO SCH ×2 (08:12→20:29)
[2021-03-01] MEDS: SPIRONOLACTONE 25 MG TABLET PO SCH (08:13)
[2021-03-01] MEDS: FOLIC ACID 1 MG TABLET PO SCH (08:13)
[2021-03-01] MEDS: CARVEDILOL 3.125 MG TABLET PO SCH ×2 (08:13→16:21)
[2021-03-01] MEDS: MULTIVITAMINS WITH MINERALS, THERAPEUTIC TABLET PO SCH (08:13)
[2021-03-01] MEDS: APIXABAN 5 MG TABLET PO SCH ×2 (08:13→16:21)
[2021-03-01] MEDS: CHOLECALCIFEROL (VIT D3) 1,000 UNITS [25 MCG] TABLET PO SCH (08:13)
[2021-03-01 08:30] VITALS: BP 98/61
[2021-03-01 10:00] VITALS: BP 104/68
[2021-03-01 17:58] VITALS: BP 96/57
[2021-03-01] MEDS: ATORVASTATIN CALCIUM 40 MG TABLET PO SCH (20:29)
[2021-03-02 00:56] VITALS: BP 103/62
[2021-03-02] MEDS: FOLIC ACID 1 MG TABLET PO SCH (08:13)
[2021-03-02] MEDS: DIVALPROEX SODIUM 500 MG DR TABLET PO SCH ×2 (08:13→20:46)
[2021-03-02] MEDS: THIAMINE 100 MG TABLET PO SCH (08:13)
[2021-03-02] MEDS: MULTIVITAMINS WITH MINERALS, THERAPEUTIC TABLET PO SCH (08:13)
[2021-03-02] MEDS: CARVEDILOL 3.125 MG TABLET PO SCH ×2 (08:14→17:12)
[2021-03-02] MEDS: APIXABAN 5 MG TABLET PO SCH ×2 (08:14→17:12)
[2021-03-02] MEDS: SPIRONOLACTONE 25 MG TABLET PO SCH (08:14)
[2021-03-02] MEDS: CHOLECALCIFEROL (VIT D3) 1,000 UNITS [25 MCG] TABLET PO SCH (08:14)
[2021-03-02] MEDS: RisperiDONE 0.5 MG TABLET PO SCH ×2 (08:14→20:46)
[2021-03-02] MEDS: CITALOPRAM HYDROBROMIDE 20 MG TABLET PO SCH (08:14)
[2021-03-02 08:39] VITALS: BP 100/60
[2021-03-02 10:34] LABS: GLUCOMETER DEV NAME(LOC) POC.BV
[2021-03-02 16:21] VITALS: BP 127/61
[2021-03-02] MEDS: ATORVASTATIN CALCIUM 40 MG TABLET PO SCH (20:46)
[2021-03-03 00:36] VITALS: BP 117/71
[2021-03-03 08:45] VITALS: BP 112/64
[2021-03-03] MEDS: SPIRONOLACTONE 25 MG TABLET PO SCH (08:50)
[2021-03-03] MEDS: THIAMINE 100 MG TABLET PO SCH (08:50)
[2021-03-03] MEDS: RisperiDONE 0.5 MG TABLET PO SCH ×2 (08:50→20:28)
[2021-03-03] MEDS: APIXABAN 5 MG TABLET PO SCH ×2 (08:50→16:36)
[2021-03-03] MEDS: FOLIC ACID 1 MG TABLET PO SCH (08:51)
[2021-03-03] MEDS: CHOLECALCIFEROL (VIT D3) 1,000 UNITS [25 MCG] TABLET PO SCH (08:51)
[2021-03-03] MEDS: DIVALPROEX SODIUM 500 MG DR TABLET PO SCH ×2 (08:51→20:27)
[2021-03-03] MEDS: MULTIVITAMINS WITH MINERALS, THERAPEUTIC TABLET PO SCH (08:51)
[2021-03-03] MEDS: CITALOPRAM HYDROBROMIDE 20 MG TABLET PO SCH (08:51)
[2021-03-03] MEDS: CARVEDILOL 3.125 MG TABLET PO SCH ×2 (08:53→16:48)
[2021-03-03 16:14] VITALS: BP 104/60
[2021-03-03] MEDS: ATORVASTATIN CALCIUM 40 MG TABLET PO SCH (20:28)
[2021-03-04 00:53] VITALS: BP 101/71
[2021-03-04 08:19] VITALS: BP 90/60
[2021-03-04] MEDS: MULTIVITAMINS WITH MINERALS, THERAPEUTIC TABLET PO SCH (08:38)
[2021-03-04] MEDS: CITALOPRAM HYDROBROMIDE 20 MG TABLET PO SCH (08:38)
[2021-03-04] MEDS: CHOLECALCIFEROL (VIT D3) 1,000 UNITS [25 MCG] TABLET PO SCH (08:39)
[2021-03-04] MEDS: RisperiDONE 0.5 MG TABLET PO SCH ×2 (08:39→20:19)
[2021-03-04] MEDS: SPIRONOLACTONE 25 MG TABLET PO SCH (08:39)
[2021-03-04] MEDS: DIVALPROEX SODIUM 500 MG DR TABLET PO SCH ×2 (08:40→20:19)
[2021-03-04] MEDS: APIXABAN 5 MG TABLET PO SCH ×2 (08:40→17:14)
[2021-03-04] MEDS: FOLIC ACID 1 MG TABLET PO SCH (08:40)
[2021-03-04] MEDS: THIAMINE 100 MG TABLET PO SCH (08:40)
[2021-03-04] MEDS: CARVEDILOL 3.125 MG TABLET PO SCH ×2 (08:41→17:00)
[2021-03-04 16:35] VITALS: BP 95/62
[2021-03-04] MEDS: ATORVASTATIN CALCIUM 40 MG TABLET PO SCH (20:19)
[2021-03-05 06:23] VITALS: BP 104/62
[2021-03-05 08:30] VITALS: BP 102/69
[2021-03-05] MEDS: CARVEDILOL 3.125 MG TABLET PO SCH ×2 (09:00→16:52)
[2021-03-05] MEDS: MULTIVITAMINS WITH MINERALS, THERAPEUTIC TABLET PO SCH (09:21)
[2021-03-05] MEDS: CITALOPRAM HYDROBROMIDE 20 MG TABLET PO SCH (09:22)
[2021-03-05] MEDS: SPIRONOLACTONE 25 MG TABLET PO SCH (09:23)
[2021-03-05] MEDS: CHOLECALCIFEROL (VIT D3) 1,000 UNITS [25 MCG] TABLET PO SCH (09:23)
[2021-03-05] MEDS: APIXABAN 5 MG TABLET PO SCH ×2 (09:23→16:51)
[2021-03-05] MEDS: DIVALPROEX SODIUM 500 MG DR TABLET PO SCH ×2 (09:24→20:30)
[2021-03-05] MEDS: FOLIC ACID 1 MG TABLET PO SCH (09:24)
[2021-03-05] MEDS: RisperiDONE 0.5 MG TABLET PO SCH ×2 (09:26→20:30)
[2021-03-05] MEDS: THIAMINE 100 MG TABLET PO SCH (09:28)
[2021-03-05] MEDS: ATORVASTATIN CALCIUM 40 MG TABLET PO SCH (20:30)
[2021-03-06 01:58] VITALS: BP 100/72
[2021-03-06] MEDS: DIVALPROEX SODIUM 500 MG DR TABLET PO SCH ×2 (08:40→20:23)
[2021-03-06] MEDS: CITALOPRAM HYDROBROMIDE 20 MG TABLET PO SCH (08:40)
[2021-03-06] MEDS: SPIRONOLACTONE 25 MG TABLET PO SCH (08:40)
[2021-03-06] MEDS: APIXABAN 5 MG TABLET PO SCH ×2 (08:40→16:17)
[2021-03-06] MEDS: CHOLECALCIFEROL (VIT D3) 1,000 UNITS [25 MCG] TABLET PO SCH (08:41)
[2021-03-06] MEDS: FOLIC ACID 1 MG TABLET PO SCH (08:41)
[2021-03-06] MEDS: RisperiDONE 0.5 MG TABLET PO SCH ×2 (08:41→20:23)
[2021-03-06] MEDS: THIAMINE 100 MG TABLET PO SCH (08:41)
[2021-03-06] MEDS: MULTIVITAMINS WITH MINERALS, THERAPEUTIC TABLET PO SCH (08:41)
[2021-03-06 08:43] VITALS: BP 100/60
[2021-03-06] MEDS: CARVEDILOL 3.125 MG TABLET PO SCH ×2 (08:54→16:17)
[2021-03-06 16:27] VITALS: BP 122/78
[2021-03-06] MEDS: ATORVASTATIN CALCIUM 40 MG TABLET PO SCH (20:23)
[2021-03-07 00:11] VITALS: BP 114/71
[2021-03-07 08:49] VITALS: BP 90/57
[2021-03-07] MEDS: CHOLECALCIFEROL (VIT D3) 1,000 UNITS [25 MCG] TABLET PO SCH (08:52)
[2021-03-07] MEDS: APIXABAN 5 MG TABLET PO SCH ×2 (08:52→15:50)
[2021-03-07] MEDS: DIVALPROEX SODIUM 500 MG DR TABLET PO SCH ×2 (08:52→20:19)
[2021-03-07] MEDS: MULTIVITAMINS WITH MINERALS, THERAPEUTIC TABLET PO SCH (08:52)
[2021-03-07] MEDS: CITALOPRAM HYDROBROMIDE 20 MG TABLET PO SCH (08:52)
[2021-03-07] MEDS: SPIRONOLACTONE 25 MG TABLET PO SCH (08:53)
[2021-03-07] MEDS: RisperiDONE 0.5 MG TABLET PO SCH ×2 (08:54→20:19)
[2021-03-07] MEDS: CARVEDILOL 3.125 MG TABLET PO SCH ×2 (08:55→15:51)
[2021-03-07 16:18] VITALS: BP 115/61
[2021-03-07] MEDS: ATORVASTATIN CALCIUM 40 MG TABLET PO SCH (20:19)
[2021-03-08 00:24] VITALS: BP 112/73
[2021-03-08 08:30] VITALS: BP 98/60
[2021-03-08] MEDS: CITALOPRAM HYDROBROMIDE 20 MG TABLET PO SCH (08:50)
[2021-03-08] MEDS: MULTIVITAMINS WITH MINERALS, THERAPEUTIC TABLET PO SCH (08:50)
[2021-03-08] MEDS: CHOLECALCIFEROL (VIT D3) 1,000 UNITS [25 MCG] TABLET PO SCH (08:50)
[2021-03-08] MEDS: RisperiDONE 0.5 MG TABLET PO SCH ×2 (08:50→20:37)
[2021-03-08] MEDS: DIVALPROEX SODIUM 500 MG DR TABLET PO SCH ×2 (08:50→20:37)
[2021-03-08] MEDS: CARVEDILOL 3.125 MG TABLET PO SCH ×2 (08:51→16:53)
[2021-03-08] MEDS: SPIRONOLACTONE 25 MG TABLET PO SCH (08:51)
[2021-03-08] MEDS: APIXABAN 5 MG TABLET PO SCH ×2 (08:51→16:54)
[2021-03-08 16:19] VITALS: BP 120/71
[2021-03-08] MEDS: ATORVASTATIN CALCIUM 40 MG TABLET PO SCH (20:37)
[2021-03-09 00:31] VITALS: BP 112/67
[2021-03-09] MEDS: RisperiDONE 0.5 MG TABLET PO SCH ×2 (08:18→20:15)
[2021-03-09] MEDS: MULTIVITAMINS WITH MINERALS, THERAPEUTIC TABLET PO SCH (08:18)
[2021-03-09] MEDS: CITALOPRAM HYDROBROMIDE 20 MG TABLET PO SCH (08:18)
[2021-03-09] MEDS: SPIRONOLACTONE 25 MG TABLET PO SCH (08:19)
[2021-03-09] MEDS: DIVALPROEX SODIUM 500 MG DR TABLET PO SCH ×2 (08:19→20:14)
[2021-03-09] MEDS: CHOLECALCIFEROL (VIT D3) 1,000 UNITS [25 MCG] TABLET PO SCH (08:19)
[2021-03-09] MEDS: APIXABAN 5 MG TABLET PO SCH ×2 (08:19→16:17)
[2021-03-09] MEDS: CARVEDILOL 3.125 MG TABLET PO SCH ×2 (08:19→16:17)
[2021-03-09 08:46] VITALS: BP 103/60
[2021-03-09 16:27] VITALS: BP 106/60
[2021-03-09] MEDS: ATORVASTATIN CALCIUM 40 MG TABLET PO SCH (20:15)
[2021-03-10 00:23] VITALS: BP 101/63
[2021-03-10 08:31] VITALS: BP 100/68
[2021-03-10] MEDS: DIVALPROEX SODIUM 500 MG DR TABLET PO SCH ×2 (08:53→20:23)
[2021-03-10] MEDS: CITALOPRAM HYDROBROMIDE 20 MG TABLET PO SCH (08:53)
[2021-03-10] MEDS: CHOLECALCIFEROL (VIT D3) 1,000 UNITS [25 MCG] TABLET PO SCH (08:53)
[2021-03-10] MEDS: MULTIVITAMINS WITH MINERALS, THERAPEUTIC TABLET PO SCH (08:53)
[2021-03-10] MEDS: RisperiDONE 0.5 MG TABLET PO SCH ×2 (08:53→20:23)
[2021-03-10] MEDS: APIXABAN 5 MG TABLET PO SCH ×2 (08:53→16:15)
[2021-03-10] MEDS: SPIRONOLACTONE 25 MG TABLET PO SCH (08:53)
[2021-03-10] MEDS: CARVEDILOL 3.125 MG TABLET PO SCH ×2 (08:54→16:16)
[2021-03-10 15:33] LABS: GLUCOMETER DEV NAME(LOC) POC.BV
[2021-03-10 16:13] VITALS: BP 107/65
[2021-03-10] MEDS: ATORVASTATIN CALCIUM 40 MG TABLET PO SCH (20:23)
[2021-03-11 07:12] VITALS: BP 110/72
[2021-03-11 07:16] VITALS: BP 81/49
[2021-03-11 08:19] VITALS: BP 108/70
[2021-03-11] MEDS: MULTIVITAMINS WITH MINERALS, THERAPEUTIC TABLET PO SCH (08:28)
[2021-03-11] MEDS: APIXABAN 5 MG TABLET PO SCH (08:28)
[2021-03-11] MEDS: SPIRONOLACTONE 25 MG TABLET PO SCH (08:28)
[2021-03-11] MEDS: DIVALPROEX SODIUM 500 MG DR TABLET PO SCH (08:29)
[2021-03-11] MEDS: RisperiDONE 0.5 MG TABLET PO SCH (08:29)
[2021-03-11] MEDS: CHOLECALCIFEROL (VIT D3) 1,000 UNITS [25 MCG] TABLET PO SCH (08:29)
[2021-03-11] MEDS: CARVEDILOL 3.125 MG TABLET PO SCH (08:29)
[2021-03-11] MEDS: CITALOPRAM HYDROBROMIDE 20 MG TABLET PO SCH (08:29)
[2021-03-11 08:30] LABS: COVID AG,FIA SOURCE NASAL SWAB
== END 2021-03-11 13:00 | disposition home or self-care (01) | DRG 750 ==
LOC: EMS 11:06 → B3A 14:51
DX: F25.0 Schizoaffective disorder, bipolar type (principal); I11.0 Hypertensive heart disease with heart failure; I50.9 Heart failure, unspecified; Z59.00 Homelessness unspecified; E55.9 Vitamin D deficiency, unspecified; E78.00 Pure hypercholesterolemia, unspecified; E78.5 Hyperlipidemia, unspecified; G47.00 Insomnia, unspecified; J44.9 Chronic obstructive pulmonary disease, unspecified; Z20.822 Contact with and (suspected) exposure to COVID-19; Z79.899 Other long term (current) drug therapy; I25.2 Old myocardial infarction; Z90.710 Acquired absence of both cervix and uterus; Z95.0 Presence of cardiac pacemaker; Z79.82 Long term (current) use of aspirin; Z88.2 Allergy status to sulfonamides
CPT/HCPCS: 80053; 80061; 80164; 83735; 84100; 85025; 99285; G0480; J1200; J1630; J2060